=== PATIENT | male | born 1950 | race Caucasian/White ===

== ENCOUNTER 2020-08-13 10:23 | Inpatient (IN) ==
[2020-08-13 11:14] LABS: Basophils % 0.1 % (0.0-0.8); Hematocrit 46.4 VOL% (42.0-52.0); Hemoglobin 15.6 GM/DL (14.0-18.0); Immature Granulocytes % 0.9 %; Immature Granulocytes Absolute 0.14 #; Lymphocytes # 0.6 10*3/uL (1.4-4.0); Lymphocytes % 3.5 % (21.2-54.2); Mean Corpuscular HGB Conc 33.6 GM/DL (32-36); Mean Corpuscular Volume 95.3 FL (87-102); Mean Platelet Volume 9.7 FL (9.6-12.0); Neutrophils % 91.5 % (38.7-73.9); Platelet Count 186 T/CUMM (130-400); Red Blood Count 4.87 MC/CUMM (3.8-5.5); Red Cell Distribution Width 11.9 % (9.3-17.3); White Blood Count 16.1 T/CUMM (4-12)
[2020-08-13 11:32] LABS: Lymphocytes 3 % (20-55); Platelet Estimate Adequate; Segmented Neutrophils 92 % (50-85); Total Cells Counted 100
[2020-08-13] MEDS ORDERED: AZITHROMYCIN INJ 500 MG in SODIUM CHLORIDE 0.9% 250 ML IV STA (11:51)
[2020-08-13] MEDS ORDERED: cefTRIAXone 1,000 MG in SODIUM CHLORIDE 0.9% 100 ML IV STA (11:51)
[2020-08-13 11:54] LABS: Alanine Aminotransferase 24 U/L (16-61); Albumin 2.9 G/DL (3.4-5.0); Alkaline Phosphatase 73 U/L (45-117); Aspartate Amino Transferase 25 U/L (0-37); Blood Urea Nitrogen 22 MG/DL (7-18); Calcium 9.1 MG/DL (8.5-10.1); Carbon Dioxide 22 MMOL/L (21-32); Estimated Glom Filtration Rate 59 ML/MIN; Glucose 209 MG/DL (74-106); Osmolality,Calculated 274.4 MOS/KG (273-304); Potassium 4.1 MMOL/L (3.5-5.1); Sodium 133 MMOL/L (136-145); Total Protein 7.6 G/DL (6.4-8.3)
[2020-08-13] MEDS ORDERED: DEXAMETHASONE 4 MG/1 ML VIAL IV STA (12:30)
[2020-08-13] MEDS ORDERED: ONDANSETRON 4 MG/2 ML VIAL IV PRN (13:15)
[2020-08-13] MEDS ORDERED: DEXTROSE 50% 25 GM/50 ML VIAL IV PRN (13:15)
[2020-08-13] MEDS ORDERED: GLUCAGON 1 MG VIAL IM PRN (13:15)
[2020-08-13] MEDS ORDERED: DOCUSATE SODIUM 100 MG CAPSULE PO PRN (13:15)
[2020-08-13] MEDS: ENOXAPARIN 30 MG/0.3 ML SYRINGE SUBCUT SCH (14:11)
[2020-08-13] MEDS: SODIUM CHLORIDE 0.9% 1,000 ML IV SCH (14:12)
[2020-08-13] MEDS ORDERED: REMDESIVIR 200 MG in SODIUM CHLORIDE 0.9% 210 ML IV ONE (16:00)
[2020-08-13] MEDS: INSULIN LISPRO 100 UNIT/ML SUBCUT SCH ×2 (17:52→21:43)
[2020-08-13] MEDS: carvediloL 3.125 MG TABLET PO SCH (21:42)
[2020-08-13] MEDS: DONEPEZIL 10 MG TABLET PO SCH (21:42)
[2020-08-13] MEDS: ASCORBIC ACID 500 MG TABLET PO SCH (21:43)
[2020-08-13] MEDS: MEMANTINE 10 MG TABLET PO SCH (21:43)
[2020-08-14] MEDS: SODIUM CHLORIDE 0.9% 1,000 ML IV SCH (05:17)
[2020-08-14 05:30] LABS: Basophils % 0.2 % (0.0-0.8); Hematocrit 40.5 VOL% (42.0-52.0); Immature Granulocytes % 1.1 %; Immature Granulocytes Absolute 0.14 #; Lymphocytes # 0.6 10*3/uL (1.4-4.0); Lymphocytes % 5.1 % (21.2-54.2); Mean Corpuscular HGB Conc 34.6 GM/DL (32-36); Mean Corpuscular Volume 93.5 FL (87-102); Mean Platelet Volume 9.7 FL (9.6-12.0); Monocytes % 6.7 % (1.7-12.7); Neutrophils % 86.9 % (38.7-73.9); Platelet Count 169 T/CUMM (130-400); Red Blood Count 4.33 MC/CUMM (3.8-5.5); Red Cell Distribution Width 11.9 % (9.3-17.3); White Blood Count 12.2 T/CUMM (4-12)
[2020-08-14 05:57] LABS: Albumin 2.4 G/DL (3.4-5.0); Bilirubin,Total 0.4 MG/DL (0.2-1.0); Calcium 8.4 MG/DL (8.5-10.1); Osmolality,Calculated 282.4 MOS/KG (273-304); Potassium 4.1 MMOL/L (3.5-5.1); Risk Ratio 1.95; Thyroid Stimulating Hormone 0.111 uIU/ml (0.358-3.74); Total Protein 6.5 G/DL (6.4-8.3); VLDL CHOLESTEROL 9.6 MG/DL
[2020-08-14] MEDS: INSULIN LISPRO 100 UNIT/ML SUBCUT SCH ×4 (07:31→21:23)
[2020-08-14] MEDS: carvediloL 3.125 MG TABLET PO SCH ×2 (08:20→21:20)
[2020-08-14] MEDS: MEMANTINE 10 MG TABLET PO SCH ×2 (08:20→21:20)
[2020-08-14] MEDS: ZINC GLUCONATE 50 MG TABLET PO SCH (08:20)
[2020-08-14] MEDS: CHOLECALCIFEROL 1,000 UNIT TABLET PO SCH (08:20)
[2020-08-14] MEDS: DEXAMETHASONE 10 MG/1 ML VIAL IV SCH (08:20)
[2020-08-14] MEDS: ASCORBIC ACID 500 MG TABLET PO SCH ×2 (08:20→21:20)
[2020-08-14] MEDS: CITALOPRAM 20 MG TABLET PO SCH (08:20)
[2020-08-14] MEDS: PANTOPRAZOLE 40 MG TABLET PO SCH (08:20)
[2020-08-14 08:46] LABS: Free T4 (Free Thyroxine) 0.95 NG/DL (0.76-1.46)
[2020-08-14 08:51] LABS: ABG Base Excess -0.9 MMOL/L (-2.5-2.5); ABG HCO3 22.7 MMOL/L (20-26); ABG Oxygen Saturation 93.6 % (95-100); ABG PCO2 34.7 MM HG (35-48); ABG PH 7.433 (7.35-7.45); ABG PO2 67.3 MM HG (80-95); ABG TCO2 23.7 MMOL/L (23-27)
[2020-08-14] MEDS: REMDESIVIR 100 MG in SODIUM CHLORIDE 0.9% 100 ML IV SCH (09:06)
[2020-08-14] MEDS: ENOXAPARIN 30 MG/0.3 ML SYRINGE SUBCUT SCH (13:50)
[2020-08-14] MEDS: cefTRIAXone 1,000 MG in SYRINGE 1 EACH IV SCH (13:50)
[2020-08-14] MEDS: AZITHROMYCIN INJ 500 MG in SODIUM CHLORIDE 0.9% 250 ML IV SCH (13:50)
[2020-08-14] MEDS ORDERED: OLANZapine 10 MG VIAL IM ONE (17:35)
[2020-08-14] MEDS: DONEPEZIL 10 MG TABLET PO SCH (21:20)
[2020-08-15 05:40] LABS: Basophils % 0.1 % (0.0-0.8); Hematocrit 41.2 VOL% (42.0-52.0); Hemoglobin 13.5 GM/DL (14.0-18.0); Immature Granulocytes % 0.6 %; Immature Granulocytes Absolute 0.06 #; Lymphocytes # 0.7 10*3/uL (1.4-4.0); Lymphocytes % 7.2 % (21.2-54.2); Mean Corpuscular HGB Conc 32.8 GM/DL (32-36); Mean Corpuscular Volume 97.4 FL (87-102); Mean Platelet Volume 9.7 FL (9.6-12.0); Monocytes % 8.3 % (1.7-12.7); Neutrophils % 83.8 % (38.7-73.9); Platelet Count 187 T/CUMM (130-400); Red Blood Count 4.23 MC/CUMM (3.8-5.5); Red Cell Distribution Width 12.3 % (9.3-17.3); White Blood Count 9.3 T/CUMM (4-12)
[2020-08-15 05:59] LABS: Calcium 8.8 MG/DL (8.5-10.1); Potassium 4.2 MMOL/L (3.5-5.1)
[2020-08-15] MEDS: CHOLECALCIFEROL 1,000 UNIT TABLET PO SCH (08:23)
[2020-08-15] MEDS: ASCORBIC ACID 500 MG TABLET PO SCH ×2 (08:23→21:06)
[2020-08-15] MEDS: DEXAMETHASONE 10 MG/1 ML VIAL IV SCH (08:24)
[2020-08-15] MEDS: carvediloL 3.125 MG TABLET PO SCH ×2 (08:24→22:21)
[2020-08-15] MEDS: CITALOPRAM 20 MG TABLET PO SCH (08:24)
[2020-08-15] MEDS: PANTOPRAZOLE 40 MG TABLET PO SCH (08:24)
[2020-08-15] MEDS: ZINC GLUCONATE 50 MG TABLET PO SCH (08:24)
[2020-08-15] MEDS: MEMANTINE 10 MG TABLET PO SCH ×2 (08:24→21:06)
[2020-08-15] MEDS: INSULIN LISPRO 100 UNIT/ML SUBCUT SCH ×4 (09:52→22:20)
[2020-08-15] MEDS: REMDESIVIR 100 MG in SODIUM CHLORIDE 0.9% 100 ML IV SCH (11:04)
[2020-08-15] MEDS: ENOXAPARIN 30 MG/0.3 ML SYRINGE SUBCUT SCH (13:34)
[2020-08-15] MEDS: cefTRIAXone 1,000 MG in SYRINGE 1 EACH IV SCH (13:34)
[2020-08-15] MEDS: AZITHROMYCIN INJ 500 MG in SODIUM CHLORIDE 0.9% 250 ML IV SCH (13:35)
[2020-08-15] MEDS: DONEPEZIL 10 MG TABLET PO SCH (21:06)
[2020-08-16 06:16] LABS: Basophils % 0.3 % (0.0-0.8); Hematocrit 41.5 VOL% (42.0-52.0); Hemoglobin 13.9 GM/DL (14.0-18.0); Immature Granulocytes % 1.4 %; Immature Granulocytes Absolute 0.16 #; Lymphocytes # 0.8 10*3/uL (1.4-4.0); Lymphocytes % 6.7 % (21.2-54.2); Mean Corpuscular HGB Conc 33.5 GM/DL (32-36); Mean Corpuscular Volume 95.6 FL (87-102); Mean Platelet Volume 9.9 FL (9.6-12.0); Monocytes % 6.6 % (1.7-12.7); Platelet Count 192 T/CUMM (130-400); Red Blood Count 4.34 MC/CUMM (3.8-5.5); Red Cell Distribution Width 12.3 % (9.3-17.3); White Blood Count 11.6 T/CUMM (4-12)
[2020-08-16 06:40] LABS: Calcium 8.7 MG/DL (8.5-10.1); Potassium 3.9 MMOL/L (3.5-5.1)
[2020-08-16] MEDS: INSULIN LISPRO 100 UNIT/ML SUBCUT SCH ×4 (08:14→21:10)
[2020-08-16] MEDS: PANTOPRAZOLE 40 MG TABLET PO SCH (10:02)
[2020-08-16] MEDS: CHOLECALCIFEROL 1,000 UNIT TABLET PO SCH (10:03)
[2020-08-16] MEDS: ZINC GLUCONATE 50 MG TABLET PO SCH (10:03)
[2020-08-16] MEDS: MEMANTINE 10 MG TABLET PO SCH ×2 (10:03→21:10)
[2020-08-16] MEDS: ASCORBIC ACID 500 MG TABLET PO SCH ×2 (10:03→21:10)
[2020-08-16] MEDS: CITALOPRAM 20 MG TABLET PO SCH (10:05)
[2020-08-16] MEDS: DEXAMETHASONE 10 MG/1 ML VIAL IV SCH (10:05)
[2020-08-16] MEDS: carvediloL 3.125 MG TABLET PO SCH ×2 (10:06→21:10)
[2020-08-16] MEDS: REMDESIVIR 100 MG in SODIUM CHLORIDE 0.9% 100 ML IV SCH (10:44)
[2020-08-16] MEDS: AZITHROMYCIN INJ 500 MG in SODIUM CHLORIDE 0.9% 250 ML IV SCH (13:32)
[2020-08-16] MEDS: ENOXAPARIN 30 MG/0.3 ML SYRINGE SUBCUT SCH (13:32)
[2020-08-16] MEDS: cefTRIAXone 1,000 MG in SYRINGE 1 EACH IV SCH (13:32)
[2020-08-16] MEDS: DONEPEZIL 10 MG TABLET PO SCH (21:10)
[2020-08-17 05:25] LABS: Basophils % 0.2 % (0.0-0.8); Hematocrit 43.8 VOL% (42.0-52.0); Hemoglobin 14.5 GM/DL (14.0-18.0); Immature Granulocytes % 1.2 %; Immature Granulocytes Absolute 0.11 #; Lymphocytes # 0.7 10*3/uL (1.4-4.0); Lymphocytes % 8.2 % (21.2-54.2); Mean Corpuscular HGB Conc 33.1 GM/DL (32-36); Mean Corpuscular Volume 96.1 FL (87-102); Mean Platelet Volume 9.5 FL (9.6-12.0); Monocytes % 5.9 % (1.7-12.7); Neutrophils % 84.5 % (38.7-73.9); Platelet Count 202 T/CUMM (130-400); Red Blood Count 4.56 MC/CUMM (3.8-5.5); Red Cell Distribution Width 12.3 % (9.3-17.3); White Blood Count 8.9 T/CUMM (4-12)
[2020-08-17 05:44] LABS: Calcium 9.1 MG/DL (8.5-10.1); Ferritin 624.6 ng/ml (26-388); Osmolality,Calculated 290.8 MOS/KG (273-304)
[2020-08-17] MEDS: INSULIN LISPRO 100 UNIT/ML SUBCUT SCH ×4 (08:03→21:40)
[2020-08-17] MEDS: PANTOPRAZOLE 40 MG TABLET PO SCH (09:59)
[2020-08-17] MEDS: carvediloL 3.125 MG TABLET PO SCH ×2 (09:59→21:40)
[2020-08-17] MEDS: REMDESIVIR 100 MG in SODIUM CHLORIDE 0.9% 100 ML IV SCH (09:59)
[2020-08-17] MEDS: MEMANTINE 10 MG TABLET PO SCH ×2 (09:59→21:40)
[2020-08-17] MEDS: CITALOPRAM 20 MG TABLET PO SCH (09:59)
[2020-08-17] MEDS: DEXAMETHASONE 10 MG/1 ML VIAL IV SCH (09:59)
[2020-08-17] MEDS: CHOLECALCIFEROL 1,000 UNIT TABLET PO SCH (10:00)
[2020-08-17] MEDS: ZINC GLUCONATE 50 MG TABLET PO SCH (10:00)
[2020-08-17] MEDS: ASCORBIC ACID 500 MG TABLET PO SCH ×2 (10:00→21:40)
[2020-08-17] MEDS: ENOXAPARIN 30 MG/0.3 ML SYRINGE SUBCUT SCH (15:12)
[2020-08-17] MEDS: cefTRIAXone 1,000 MG in SYRINGE 1 EACH IV SCH (15:12)
[2020-08-17] MEDS: AZITHROMYCIN INJ 500 MG in SODIUM CHLORIDE 0.9% 250 ML IV SCH (15:12)
[2020-08-17] MEDS: DONEPEZIL 10 MG TABLET PO SCH (21:40)
[2020-08-17] MEDS ORDERED: LORazepam 2 MG/1 ML VIAL IV ONE (23:39)
[2020-08-18] MEDS ORDERED: LORazepam 2 MG/1 ML VIAL IV PRN (01:25)
[2020-08-18 06:12] LABS: Basophils % 0.2 % (0.0-0.8); Eosinophils % 0.1 % (0.00-10.9); Hematocrit 46.7 VOL% (42.0-52.0); Hemoglobin 15.5 GM/DL (14.0-18.0); Immature Granulocytes % 1.2 %; Immature Granulocytes Absolute 0.14 #; Lymphocytes # 0.8 10*3/uL (1.4-4.0); Lymphocytes % 6.4 % (21.2-54.2); Mean Corpuscular HGB Conc 33.2 GM/DL (32-36); Mean Corpuscular Volume 95.3 FL (87-102); Mean Platelet Volume 9.6 FL (9.6-12.0); Monocytes % 2.6 % (1.7-12.7); Neutrophils % 89.5 % (38.7-73.9); Platelet Count 204 T/CUMM (130-400); Red Cell Distribution Width 12.2 % (9.3-17.3); White Blood Count 11.7 T/CUMM (4-12)
[2020-08-18 06:31] LABS: Calcium 9.2 MG/DL (8.5-10.1); Ferritin 778.5 ng/ml (26-388); Osmolality,Calculated 279.5 MOS/KG (273-304); Potassium 4.1 MMOL/L (3.5-5.1)
[2020-08-18] MEDS: INSULIN LISPRO 100 UNIT/ML SUBCUT SCH ×4 (08:31→21:09)
[2020-08-18] MEDS: DEXAMETHASONE 10 MG/1 ML VIAL IV SCH (10:02)
[2020-08-18] MEDS: CITALOPRAM 20 MG TABLET PO SCH (10:02)
[2020-08-18] MEDS: carvediloL 3.125 MG TABLET PO SCH ×2 (10:02→21:48)
[2020-08-18] MEDS: PANTOPRAZOLE 40 MG TABLET PO SCH (10:04)
[2020-08-18] MEDS: CHOLECALCIFEROL 1,000 UNIT TABLET PO SCH (10:04)
[2020-08-18] MEDS: ASCORBIC ACID 500 MG TABLET PO SCH ×2 (10:04→21:49)
[2020-08-18] MEDS: MEMANTINE 10 MG TABLET PO SCH ×2 (10:04→21:48)
[2020-08-18] MEDS: ZINC GLUCONATE 50 MG TABLET PO SCH (10:04)
[2020-08-18] MEDS: cefTRIAXone 1,000 MG in SYRINGE 1 EACH IV SCH (15:32)
[2020-08-18] MEDS: ENOXAPARIN 30 MG/0.3 ML SYRINGE SUBCUT SCH (15:32)
[2020-08-18] MEDS: AZITHROMYCIN INJ 500 MG in SODIUM CHLORIDE 0.9% 250 ML IV SCH (15:47)
[2020-08-18] MEDS: DONEPEZIL 10 MG TABLET PO SCH (21:48)
[2020-08-19 05:39] LABS: Basophils % 0.2 % (0.0-0.8); Hematocrit 44.7 VOL% (42.0-52.0); Hemoglobin 15.2 GM/DL (14.0-18.0); Lymphocytes # 0.5 10*3/uL (1.4-4.0); Lymphocytes % 5.2 % (21.2-54.2); Mean Corpuscular Volume 92.2 FL (87-102); Mean Platelet Volume 9.7 FL (9.6-12.0); Neutrophils % 91.6 % (38.7-73.9); Platelet Count 167 T/CUMM (130-400); Red Blood Count 4.85 MC/CUMM (3.8-5.5); Red Cell Distribution Width 12.4 % (9.3-17.3); White Blood Count 9.6 T/CUMM (4-12)
[2020-08-19 06:05] LABS: Lymphocytes 5 % (20-55); Platelet Estimate Adequate; Segmented Neutrophils 91 % (50-85); Total Cells Counted 100
[2020-08-19 06:09] LABS: Ferritin 896.6 ng/ml (26-388); Osmolality,Calculated 293.8 MOS/KG (273-304); Potassium 4.3 MMOL/L (3.5-5.1)
[2020-08-19] MEDS: CITALOPRAM 20 MG TABLET PO SCH (08:40)
[2020-08-19] MEDS: PANTOPRAZOLE 40 MG TABLET PO SCH (08:41)
[2020-08-19] MEDS: CHOLECALCIFEROL 1,000 UNIT TABLET PO SCH (08:41)
[2020-08-19] MEDS: carvediloL 3.125 MG TABLET PO SCH ×2 (08:41→20:41)
[2020-08-19] MEDS: ZINC GLUCONATE 50 MG TABLET PO SCH (08:41)
[2020-08-19] MEDS: MEMANTINE 10 MG TABLET PO SCH ×2 (08:41→20:42)
[2020-08-19] MEDS: DEXAMETHASONE 10 MG/1 ML VIAL IV SCH (08:41)
[2020-08-19] MEDS: ASCORBIC ACID 500 MG TABLET PO SCH ×2 (08:41→20:42)
[2020-08-19] MEDS: INSULIN LISPRO 100 UNIT/ML SUBCUT SCH ×4 (08:43→20:42)
[2020-08-19 09:14] LABS: ABG Base Excess 0.3 MMOL/L (-2.5-2.5); ABG HCO3 22.7 MMOL/L (20-26); ABG Oxygen Saturation 84.9 % (95-100); ABG PH 7.482 (7.35-7.45); ABG PO2 48.7 MM HG (80-95); ABG TCO2 23.6 MMOL/L (23-27)
[2020-08-19] MEDS: ENOXAPARIN 80 MG/0.8 ML SYRINGE SUBCUT SCH ×2 (09:52→20:43)
[2020-08-19] MEDS ORDERED: FUROSEMIDE 40 MG/4 ML VIAL IV ONE (10:25)
[2020-08-19] MEDS: cefTRIAXone 1,000 MG in SYRINGE 1 EACH IV SCH (13:02)
[2020-08-19 13:55] LABS: ABG Base Excess 2.4 MMOL/L (-2.5-2.5); ABG HCO3 26.2 MMOL/L (20-26); ABG Oxygen Saturation 88.1 % (95-100); ABG PCO2 32.9 MM HG (35-48); ABG PH 7.487 (7.35-7.45); ABG PO2 54.3 MM HG (80-95); ABG TCO2 20.5 MMOL/L (23-27)
[2020-08-19] MEDS: AZITHROMYCIN INJ 500 MG in SODIUM CHLORIDE 0.9% 250 ML IV SCH (14:00)
[2020-08-19] MEDS: hydrALAZINE 20 MG/1 ML VIAL IV PRN (18:40)
[2020-08-19] MEDS: DONEPEZIL 10 MG TABLET PO SCH (20:41)
[2020-08-20 04:13] LABS: Basophils % 0.2 % (0.0-0.8); Hematocrit 46.5 VOL% (42.0-52.0); Hemoglobin 16.1 GM/DL (14.0-18.0); Immature Granulocytes % 0.5 %; Immature Granulocytes Absolute 0.06 #; Lymphocytes # 0.5 10*3/uL (1.4-4.0); Lymphocytes % 4.8 % (21.2-54.2); Mean Corpuscular HGB Conc 34.6 GM/DL (32-36); Mean Corpuscular Volume 92.8 FL (87-102); Mean Platelet Volume 10.2 FL (9.6-12.0); Neutrophils % 92.5 % (38.7-73.9); Platelet Count 166 T/CUMM (130-400); Red Blood Count 5.01 MC/CUMM (3.8-5.5); Red Cell Distribution Width 12.6 % (9.3-17.3); White Blood Count 11.1 T/CUMM (4-12)
[2020-08-20 04:44] LABS: Lymphocytes 5 % (20-55); Platelet Estimate Adequate; Segmented Neutrophils 92 % (50-85); Total Cells Counted 100
[2020-08-20 04:47] LABS: Calcium 9.2 MG/DL (8.5-10.1); Osmolality,Calculated 294.3 MOS/KG (273-304); Potassium 4.8 MMOL/L (3.5-5.1)
[2020-08-20 05:48] LABS: Allen Test Positive
[2020-08-20 05:49] LABS: ABG Base Excess 0.4 MMOL/L (-2.5-2.5); ABG HCO3 21.8 MMOL/L (20-26); ABG Oxygen Saturation 89.8 % (95-100); ABG TCO2 22.7 MMOL/L (23-27)
[2020-08-20] MEDS: ASCORBIC ACID 500 MG TABLET PO SCH ×2 (08:00→20:38)
[2020-08-20] MEDS: ZINC GLUCONATE 50 MG TABLET PO SCH (08:00)
[2020-08-20] MEDS: ENOXAPARIN 80 MG/0.8 ML SYRINGE SUBCUT SCH ×2 (08:00→20:39)
[2020-08-20] MEDS: CITALOPRAM 20 MG TABLET PO SCH (08:01)
[2020-08-20] MEDS: PANTOPRAZOLE 40 MG TABLET PO SCH (08:01)
[2020-08-20] MEDS: carvediloL 3.125 MG TABLET PO SCH ×2 (08:01→20:38)
[2020-08-20] MEDS: CHOLECALCIFEROL 1,000 UNIT TABLET PO SCH (08:01)
[2020-08-20] MEDS: MEMANTINE 10 MG TABLET PO SCH ×2 (08:01→20:38)
[2020-08-20] MEDS: DEXAMETHASONE 10 MG/1 ML VIAL IV SCH (08:01)
[2020-08-20] MEDS: INSULIN LISPRO 100 UNIT/ML SUBCUT SCH ×4 (08:49→20:39)
[2020-08-20] MEDS: methylPREDNISolone SOD SUC 40 MG/1 ML VIAL IV SCH ×2 (11:37→18:20)
[2020-08-20] MEDS ORDERED: FUROSEMIDE 40 MG/4 ML VIAL IV ONE (11:54)
[2020-08-20] MEDS: cefTRIAXone 1,000 MG in SYRINGE 1 EACH IV SCH (13:11)
[2020-08-20] MEDS: AZITHROMYCIN INJ 500 MG in SODIUM CHLORIDE 0.9% 250 ML IV SCH (13:27)
[2020-08-20] MEDS: hydrALAZINE 20 MG/1 ML VIAL IV PRN (18:34)
[2020-08-20] MEDS: DONEPEZIL 10 MG TABLET PO SCH (20:38)
[2020-08-21] MEDS: methylPREDNISolone SOD SUC 40 MG/1 ML VIAL IV SCH ×3 (02:50→18:03)
[2020-08-21 04:10] LABS: ABG Base Excess -0.3 MMOL/L (-2.5-2.5); ABG HCO3 24.1 MMOL/L (20-26); ABG Oxygen Saturation 95.9 % (95-100); ABG PCO2 40.3 MM HG (35-48); ABG PH 7.393 (7.35-7.45); ABG PO2 88.3 MM HG (80-95); ABG TCO2 20.3 MMOL/L (23-27); Allen Test Positive; Pt O2 Delivery Device BIPAP
[2020-08-21 04:49] LABS: Basophils % 0.1 % (0.0-0.8); Hematocrit 51.3 VOL% (42.0-52.0); Immature Granulocytes % 0.8 %; Immature Granulocytes Absolute 0.11 #; Lymphocytes # 0.6 10*3/uL (1.4-4.0); Lymphocytes % 4.4 % (21.2-54.2); Mean Corpuscular HGB Conc 33.1 GM/DL (32-36); Mean Corpuscular Volume 95.4 FL (87-102); Mean Platelet Volume 10.7 FL (9.6-12.0); Monocytes % 2.8 % (1.7-12.7); Neutrophils % 91.9 % (38.7-73.9); Platelet Count 152 T/CUMM (130-400); Red Blood Count 5.38 MC/CUMM (3.8-5.5); Red Cell Distribution Width 12.8 % (9.3-17.3); White Blood Count 13.1 T/CUMM (4-12)
[2020-08-21 05:12] LABS: Calcium 9.6 MG/DL (8.5-10.1); Osmolality,Calculated 311.7 MOS/KG (273-304); Potassium 4.2 MMOL/L (3.5-5.1)
[2020-08-21 05:18] LABS: Albumin 2.1 G/DL (3.4-5.0); Bilirubin,Total 1.1 MG/DL (0.2-1.0); Calcium 9.9 MG/DL (8.5-10.1); Ferritin 1410.9 ng/ml (26-388); Potassium 4.2 MMOL/L (3.5-5.1); Total Protein 7.8 G/DL (6.4-8.3)
[2020-08-21] MEDS: hydrALAZINE 20 MG/1 ML VIAL IV PRN (05:37)
[2020-08-21] MEDS: INSULIN LISPRO 100 UNIT/ML SUBCUT SCH ×3 (08:34→18:02)
[2020-08-21] MEDS ORDERED: ETOMIDATE 20 MG/10 ML VIAL IV ONE ×2 (09:05→09:13)
[2020-08-21] MEDS ORDERED: SUCCINYLCHOLINE 200 MG/10 ML VIAL ONE (09:06)
[2020-08-21] MEDS ORDERED: SUCCINYLCHOLINE 200 MG/10 ML VIAL IV ONE (09:14)
[2020-08-21] MEDS ORDERED: LORazepam 2 MG/1 ML VIAL IV ONE (09:56)
[2020-08-21] MEDS: MIDAZOLAM 100 MG in SODIUM CHLORIDE 0.9% 80 ML IV PRN ×2 (10:05→21:45)
[2020-08-21] MEDS: fentaNYL INJ 1,250 MCG in SODIUM CHLORIDE 0.9% 225 ML IV PRN ×2 (10:05→17:42)
[2020-08-21] MEDS: CISATRACURIUM 200 MG in SODIUM CHLORIDE 0.9% 180 ML IV PRN (10:25)
[2020-08-21 10:40] LABS: ABG Base Excess -3.6 MMOL/L (-2.5-2.5); ABG HCO3 21.2 MMOL/L (20-26); ABG PCO2 51.2 MM HG (35-48); ABG PH 7.284 (7.35-7.45); ABG PO2 62.1 MM HG (80-95); ABG TCO2 20.5 MMOL/L (23-27)
[2020-08-21] MEDS: CHOLECALCIFEROL 1,000 UNIT TABLET PO SCH (10:56)
[2020-08-21] MEDS: ZINC GLUCONATE 50 MG TABLET PO SCH (10:56)
[2020-08-21] MEDS: carvediloL 3.125 MG TABLET PO SCH (10:56)
[2020-08-21] MEDS: ASCORBIC ACID 500 MG TABLET PO SCH ×2 (10:56→20:55)
[2020-08-21] MEDS: MEMANTINE 10 MG TABLET PO SCH ×2 (10:57→20:55)
[2020-08-21] MEDS: CITALOPRAM 20 MG TABLET PO SCH (10:57)
[2020-08-21] MEDS: ENOXAPARIN 80 MG/0.8 ML SYRINGE SUBCUT SCH ×2 (10:57→20:55)
[2020-08-21] MEDS: PANTOPRAZOLE 40 MG TABLET PO SCH (10:58)
[2020-08-21] MEDS ORDERED: SODIUM CHLORIDE 0.9% 1,000 ML IV ONE (12:04)
[2020-08-21] MEDS: AZITHROMYCIN INJ 500 MG in SODIUM CHLORIDE 0.9% 250 ML IV SCH (13:07)
[2020-08-21] MEDS: cefTRIAXone 1,000 MG in SYRINGE 1 EACH IV SCH (13:07)
[2020-08-21] MEDS ORDERED: METOPROLOL TARTRATE 5 MG/5 ML VIAL IV ONE (15:16)
[2020-08-21] MEDS ORDERED: SODIUM CHLORIDE 0.9% 1,000 ML IV SCH (15:30)
[2020-08-21] MEDS: carvediloL 12.5 MG TABLET PO SCH (16:28)
[2020-08-21] MEDS: DONEPEZIL 10 MG TABLET PO SCH (20:55)
[2020-08-22] MEDS: INSULIN LISPRO 100 UNIT/ML SUBCUT SCH ×4 (01:48→19:25)
[2020-08-22] MEDS: fentaNYL INJ 1,250 MCG in SODIUM CHLORIDE 0.9% 225 ML IV PRN ×2 (02:00→11:55)
[2020-08-22] MEDS: methylPREDNISolone SOD SUC 40 MG/1 ML VIAL IV SCH ×3 (03:00→18:59)
[2020-08-22] MEDS: ACETAMINOPHEN 325 MG TABLET PO PRN ×2 (04:36→10:27)
[2020-08-22 04:37] LABS: Red Cell Distribution Width 13.2 % (9.3-17.3)
[2020-08-22 04:41] LABS: Allen Test Positive; Pt O2 Delivery Device Ventilator
[2020-08-22 05:05] LABS: Basophils % 0.2 % (0.0-0.8); Hematocrit 53.5 VOL% (42.0-52.0); Immature Granulocytes % 2.1 %; Immature Granulocytes Absolute 0.44 #; Lymphocytes # 0.6 10*3/uL (1.4-4.0); Lymphocytes % 2.7 % (21.2-54.2); Mean Corpuscular HGB Conc 29.9 GM/DL (32-36); Mean Corpuscular Volume 105.3 FL (87-102); Mean Platelet Volume 11.4 FL (9.6-12.0); Monocytes % 2.3 % (1.7-12.7); NRBC # 0.03 10*3/uL; Neutrophils % 92.7 % (38.7-73.9); Platelet Count 150 T/CUMM (130-400); Red Blood Count 5.08 MC/CUMM (3.8-5.5); White Blood Count 21.1 T/CUMM (4-12)
[2020-08-22 05:39] LABS: ABG Base Excess -11.6 MMOL/L (-2.5-2.5); ABG HCO3 15.7 MMOL/L (20-26); ABG Oxygen Saturation 98.4 % (95-100); ABG TCO2 24.4 MMOL/L (23-27)
[2020-08-22 05:44] LABS: ABG PH 6.993 (7.35-7.45)
[2020-08-22] MEDS ORDERED: SODIUM BICARBONATE 50 MEQ/50 ML VIAL IV ONE ×2 (05:51→11:19)
[2020-08-22] MEDS ORDERED: SODIUM CHLORIDE 0.9% 1,000 ML IV SCH (06:00)
[2020-08-22 07:48] LABS: ABG Base Excess -5.1 MMOL/L (-2.5-2.5); ABG HCO3 20.2 MMOL/L (20-26); ABG Oxygen Saturation 97.7 % (95-100); ABG PCO2 67.2 MM HG (35-48); ABG TCO2 22.5 MMOL/L (23-27)
[2020-08-22 08:18] LABS: Lymphocytes 1 % (20-55); Metamyelocytes 1 %; Myelocytes 1 %; Segmented Neutrophils 95 % (50-85); Total Cells Counted 100
[2020-08-22 08:20] LABS: Platelet Estimate Adequate; Polychromasia Slight
[2020-08-22] MEDS: ASCORBIC ACID 500 MG TABLET PO SCH ×2 (09:27→20:51)
[2020-08-22] MEDS: ENOXAPARIN 80 MG/0.8 ML SYRINGE SUBCUT SCH (09:27)
[2020-08-22] MEDS: CHOLECALCIFEROL 1,000 UNIT TABLET PO SCH (09:27)
[2020-08-22] MEDS: ZINC GLUCONATE 50 MG TABLET PO SCH (09:27)
[2020-08-22] MEDS: PANTOPRAZOLE 40 MG VIAL IV SCH (09:27)
[2020-08-22] MEDS: carvediloL 12.5 MG TABLET PO SCH ×2 (09:29→18:59)
[2020-08-22] MEDS: MEMANTINE 10 MG TABLET PO SCH ×2 (09:29→20:51)
[2020-08-22] MEDS ORDERED: CEFEPIME 1,000 MG in SODIUM CHLORIDE 0.9% 100 ML IV SCH (10:30)
[2020-08-22] MEDS: MIDAZOLAM 100 MG in SODIUM CHLORIDE 0.9% 80 ML IV PRN (10:48)
[2020-08-22] MEDS ORDERED: VANCOMYCIN INJ 1,250 MG in SODIUM CHLORIDE 0.9% 250 ML IV SCH (11:30)
[2020-08-22] MEDS: SODIUM BICARB INJ 150 MEQ in STERILE WATER INJ 850 ML IV SCH (11:54)
[2020-08-22 13:17] LABS: Potassium 4.9 MMOL/L (3.5-5.1)
[2020-08-22 13:37] LABS: ABG Base Excess 1.5 MMOL/L (-2.5-2.5); ABG HCO3 25.7 MMOL/L (20-26); ABG Oxygen Saturation 96.4 % (95-100); ABG PH 7.443 (7.35-7.45); ABG PO2 75.6 MM HG (80-95); ABG TCO2 21.9 MMOL/L (23-27); Allen Test Positive; Pt O2 Delivery Device Ventilator
[2020-08-22 15:28] LABS: Calcium 7.3 MG/DL (8.5-10.1); Osmolality,Calculated 350.6 MOS/KG (273-304); Potassium 4.3 MMOL/L (3.5-5.1)
[2020-08-22] MEDS: CISATRACURIUM 200 MG in SODIUM CHLORIDE 0.9% 180 ML IV PRN (15:50)
[2020-08-22] MEDS ORDERED: SODIUM CHLORIDE 0.45% 1,000 ML IV ONE (16:43)
[2020-08-22] MEDS ORDERED: SODIUM CHLORIDE 23.4% CONC INJ 38.5 MEQ in STERILE WATER INJ 1,000 ML IV SCH (17:00)
[2020-08-22] MEDS: HEPARIN DRIP 25,000 UNITS/500 ML PREMIX IV SCH (18:59)
[2020-08-22] MEDS: LINEZOLID INJ 600 MG in PREMIX 1 EACH IV SCH (19:00)
[2020-08-22] MEDS: DONEPEZIL 10 MG TABLET PO SCH (20:51)
[2020-08-22 23:10] LABS: Alanine Aminotransferase 52 U/L (16-61); Albumin 1.5 G/DL (3.4-5.0); Alkaline Phosphatase 53 U/L (45-117); Aspartate Amino Transferase 181 U/L (0-37); Bilirubin,Total < 0.39 MG/DL (0.2-1.0); Blood Urea Nitrogen 131 MG/DL (7-18); Calcium 7.2 MG/DL (8.5-10.1); Carbon Dioxide 29 MMOL/L (21-32); Estimated Glom Filtration Rate 15 ML/MIN; Glucose 291 MG/DL (74-106); Osmolality,Calculated 351.9 MOS/KG (273-304); Potassium 3.6 MMOL/L (3.5-5.1); Sodium 151 MMOL/L (136-145); Total Protein 5.1 G/DL (6.4-8.3)
[2020-08-22] MEDS: CEFEPIME 1,000 MG in SODIUM CHLORIDE 0.9% 100 ML IV SCH (23:23)
[2020-08-23] MEDS: INSULIN LISPRO 100 UNIT/ML SUBCUT SCH ×4 (00:01→18:02)
[2020-08-23] MEDS ORDERED: LACTATED RINGERS 500 ML IV ONE (00:52)
[2020-08-23] MEDS: methylPREDNISolone SOD SUC 40 MG/1 ML VIAL IV SCH ×3 (03:49→18:02)
[2020-08-23] MEDS: MIDAZOLAM 100 MG in SODIUM CHLORIDE 0.9% 80 ML IV PRN ×2 (03:51→20:10)
[2020-08-23 04:42] LABS: Basophils % 0.1 % (0.0-0.8); Hematocrit 37.8 VOL% (42.0-52.0); Immature Granulocytes % 0.8 %; Immature Granulocytes Absolute 0.07 #; Lymphocytes # 0.3 10*3/uL (1.4-4.0); Lymphocytes % 3.1 % (21.2-54.2); NRBC # 0.02 10*3/uL; Red Cell Distribution Width 13.2 % (9.3-17.3)
[2020-08-23 04:52] LABS: ABG Base Excess 0.6 MMOL/L (-2.5-2.5); ABG HCO3 24.8 MMOL/L (20-26); ABG Oxygen Saturation 90.4 % (95-100); ABG PCO2 48.9 MM HG (35-48); ABG PH 7.349 (7.35-7.45); ABG PO2 63.5 MM HG (80-95); Allen Test Positive; Pt O2 Delivery Device Ventilator
[2020-08-23 04:55] LABS: White Blood Count 8.9 T/CUMM (4-12)
[2020-08-23 04:56] LABS: Hemoglobin 12.1 GM/DL (14.0-18.0); Platelet Count 72 T/CUMM (130-400); Red Blood Count 3.82 MC/CUMM (3.8-5.5)
[2020-08-23 05:07] LABS: Hypochromasia 1+; Lymphocytes 6 % (20-55); Microcytosis 1+; Platelet Estimate Decreased; Segmented Neutrophils 91 % (50-85); Total Cells Counted 100
[2020-08-23 05:19] LABS: Calcium 7.4 MG/DL (8.5-10.1); Osmolality,Calculated 350.9 MOS/KG (273-304); Potassium 3.3 MMOL/L (3.5-5.1)
[2020-08-23] MEDS: LINEZOLID INJ 600 MG in PREMIX 1 EACH IV SCH (05:35)
[2020-08-23] MEDS: CHOLECALCIFEROL 1,000 UNIT TABLET PO SCH (08:06)
[2020-08-23] MEDS: ASCORBIC ACID 500 MG TABLET PO SCH ×2 (08:06→20:30)
[2020-08-23] MEDS: ZINC GLUCONATE 50 MG TABLET PO SCH (08:06)
[2020-08-23] MEDS: MEMANTINE 10 MG TABLET PO SCH ×2 (08:06→20:30)
[2020-08-23] MEDS: PANTOPRAZOLE 40 MG VIAL IV SCH (08:07)
[2020-08-23] MEDS ORDERED: INSULIN GLARGINE 100 UNIT/ML SUBCUT SCH ×2 (09:00)
[2020-08-23] MEDS: carvediloL 12.5 MG TABLET PO SCH ×2 (09:02→16:56)
[2020-08-23] MEDS: SODIUM BICARB INJ 150 MEQ in STERILE WATER INJ 850 ML IV SCH (09:03)
[2020-08-23] MEDS: SODIUM CHLORIDE 0.45% 1,000 ML IV SCH (10:30)
[2020-08-23] MEDS: CEFEPIME 1,000 MG in SODIUM CHLORIDE 0.9% 100 ML IV SCH (12:25)
[2020-08-23] MEDS: fentaNYL INJ 1,250 MCG in SODIUM CHLORIDE 0.9% 225 ML IV PRN (13:00)
[2020-08-23] MEDS: HEPARIN DRIP 25,000 UNITS/500 ML PREMIX IV SCH ×2 (16:56→18:55)
[2020-08-23] MEDS: DONEPEZIL 10 MG TABLET PO SCH (20:31)
[2020-08-24] MEDS: INSULIN LISPRO 100 UNIT/ML SUBCUT SCH ×4 (00:21→18:04)
[2020-08-24] MEDS: CEFEPIME 1,000 MG in SODIUM CHLORIDE 0.9% 100 ML IV SCH ×3 (00:22→23:50)
[2020-08-24] MEDS: methylPREDNISolone SOD SUC 40 MG/1 ML VIAL IV SCH ×3 (03:01→18:05)
[2020-08-24 03:25] LABS: ABG HCO3 26.7 MMOL/L (20-26); ABG Oxygen Saturation 98.4 % (95-100); ABG PCO2 47.3 MM HG (35-48); ABG PO2 145.1 MM HG (80-95); ABG TCO2 28.2 MMOL/L (23-27); Allen Test Positive; Pt O2 Delivery Device Ventilator
[2020-08-24 03:37] LABS: Basophils % 0.1 % (0.0-0.8); Hematocrit 37.1 VOL% (42.0-52.0); Hemoglobin 11.8 GM/DL (14.0-18.0); Immature Granulocytes % 0.6 %; Immature Granulocytes Absolute 0.09 #; Lymphocytes # 0.2 10*3/uL (1.4-4.0); Lymphocytes % 1.6 % (21.2-54.2); Mean Corpuscular HGB Conc 31.8 GM/DL (32-36); Mean Corpuscular Volume 99.7 FL (87-102); Mean Platelet Volume 12.2 FL (9.6-12.0); Monocytes % 3.9 % (1.7-12.7); Neutrophils % 93.8 % (38.7-73.9); Platelet Count 101 T/CUMM (130-400); Red Blood Count 3.72 MC/CUMM (3.8-5.5); Red Cell Distribution Width 13.3 % (9.3-17.3); White Blood Count 14.7 T/CUMM (4-12)
[2020-08-24 03:51] LABS: Albumin 1.7 G/DL (3.4-5.0); Bilirubin,Total 0.9 MG/DL (0.2-1.0); Calcium 7.6 MG/DL (8.5-10.1); Osmolality,Calculated 358.3 MOS/KG (273-304); Potassium 4.1 MMOL/L (3.5-5.1); Total Protein 5.6 G/DL (6.4-8.3)
[2020-08-24 04:25] LABS: Lymphocytes 1 % (20-55); Microcytosis 1+; Platelet Estimate Decreased; Segmented Neutrophils 93 % (50-85); Total Cells Counted 100
[2020-08-24 04:26] LABS: Hypochromasia Slight
[2020-08-24] MEDS: fentaNYL INJ 1,250 MCG in SODIUM CHLORIDE 0.9% 225 ML IV PRN ×2 (07:08→21:04)
[2020-08-24] MEDS: NOREPINEPHRINE 8 MG in SODIUM CHLORIDE 0.9% 242 ML IV PRN ×2 (07:45→11:45)
[2020-08-24] MEDS: INSULIN GLARGINE 100 UNIT/ML SUBCUT SCH (08:13)
[2020-08-24] MEDS: ASCORBIC ACID 500 MG TABLET PO SCH ×2 (08:14→20:13)
[2020-08-24] MEDS: CHOLECALCIFEROL 1,000 UNIT TABLET PO SCH (08:14)
[2020-08-24] MEDS: PANTOPRAZOLE 40 MG VIAL IV SCH (08:14)
[2020-08-24] MEDS: ZINC GLUCONATE 50 MG TABLET PO SCH (08:14)
[2020-08-24] MEDS: carvediloL 12.5 MG TABLET PO SCH (08:14)
[2020-08-24] MEDS: MEMANTINE 10 MG TABLET PO SCH ×2 (08:15→20:13)
[2020-08-24] MEDS ORDERED: PHENYLEPHRINE DRIP 40 MG/250 ML PREMIX IV PRN (08:25)
[2020-08-24] MEDS ORDERED: PHENYLEPHRINE DRIP 40 MG/250 ML PREMIX IV ONE (08:26)
[2020-08-24] MEDS ORDERED: LACTATED RINGERS 1,000 ML IV ONE (08:28)
[2020-08-24] MEDS ORDERED: PHENYLEPHRINE INJ 160 MG in SODIUM CHLORIDE 0.9% 234 ML IV PRN (08:30)
[2020-08-24] MEDS ORDERED: SODIUM CHLORIDE 0.9% 1,000 ML IV ONE (08:51)
[2020-08-24] MEDS ORDERED: VASOPRESSIN 100 UNITS in SODIUM CHLORIDE 0.9% 95 ML IV PRN (09:00)
[2020-08-24] MEDS: SODIUM CHLORIDE 0.45% 1,000 ML IV SCH (09:08)
[2020-08-24] MEDS: LACTATED RINGERS 1,000 ML IV SCH ×2 (11:20→17:54)
[2020-08-24] MEDS ORDERED: LACTATED RINGERS 500 ML IV ONE ×2 (13:11→15:35)
[2020-08-24] MEDS: NOREPINEPHRINE 16 MG in SODIUM CHLORIDE 0.9% 234 ML IV PRN ×2 (15:23→22:10)
[2020-08-24] MEDS: HEPARIN DRIP 25,000 UNITS/500 ML PREMIX IV SCH (17:53)
[2020-08-24] MEDS: DONEPEZIL 10 MG TABLET PO SCH (20:13)
[2020-08-25] MEDS: INSULIN LISPRO 100 UNIT/ML SUBCUT SCH ×3 (00:07→12:18)
[2020-08-25] MEDS: LACTATED RINGERS 1,000 ML IV SCH ×2 (01:11→03:04)
[2020-08-25 01:47] LABS: ABG Base Excess -14.2 MMOL/L (-2.5-2.5); ABG HCO3 13.3 MMOL/L (20-26); ABG Oxygen Saturation 99.1 % (95-100); ABG PCO2 41.7 MM HG (35-48); ABG TCO2 13.7 MMOL/L (23-27)
[2020-08-25 01:48] LABS: ABG PH 7.136 (7.35-7.45)
[2020-08-25] MEDS ORDERED: ATROPINE 1 MG/10 ML SYRINGE IV ONE (01:53)
[2020-08-25] MEDS ORDERED: LACTATED RINGERS 1,000 ML IV ONE ×3 (01:54→13:02)
[2020-08-25] MEDS ORDERED: CALCIUM CHLORIDE 1,000 MG/10 ML SYRINGE IV ONE (01:54)
[2020-08-25] MEDS ORDERED: AMIODARONE INJ 150 MG in DEXTROSE 5% 100 ML IV ONE (02:08)
[2020-08-25] MEDS ORDERED: AMIODARONE INJ 450 MG in DEXTROSE 5% 241 ML IV SCH (02:17)
[2020-08-25] MEDS ORDERED: SODIUM BICARBONATE 50 MEQ/50 ML VIAL IV ONE ×3 (02:23→08:05)
[2020-08-25 02:28] LABS: Basophils % 0.1 % (0.0-0.8); Hematocrit 19.3 VOL% (42.0-52.0); Immature Granulocytes % 1.4 %; Immature Granulocytes Absolute 0.25 #; Lymphocytes # 0.6 10*3/uL (1.4-4.0); Lymphocytes % 3.5 % (21.2-54.2); Mean Corpuscular HGB Conc 31.1 GM/DL (32-36); Mean Corpuscular Volume 104.3 FL (87-102); Mean Platelet Volume 12.9 FL (9.6-12.0); Monocytes % 5.3 % (1.7-12.7); NRBC # 0.13 10*3/uL; Neutrophils % 89.7 % (38.7-73.9); Platelet Count 95 T/CUMM (130-400); Red Cell Distribution Width 13.2 % (9.3-17.3); White Blood Count 17.5 T/CUMM (4-12)
[2020-08-25 02:33] LABS: Red Blood Count 1.85 MC/CUMM (3.8-5.5)
[2020-08-25] MEDS ORDERED: SODIUM CHLORIDE 0.9% 1,000 ML IV PRN (02:33)
[2020-08-25 02:36] LABS: Calcium 6.7 MG/DL (8.5-10.1); Osmolality,Calculated 346.7 MOS/KG (273-304); Potassium 5.8 MMOL/L (3.5-5.1); Total Protein 3.6 G/DL (6.4-8.3)
[2020-08-25 03:51] LABS: ABG Base Excess -13.5 MMOL/L (-2.5-2.5); ABG HCO3 13.7 MMOL/L (20-26); ABG Oxygen Saturation 98.4 % (95-100); ABG PCO2 45.5 MM HG (35-48); ABG TCO2 14.7 MMOL/L (23-27)
[2020-08-25 03:53] LABS: ABG PH 7.125 (7.35-7.45)
[2020-08-25] MEDS: methylPREDNISolone SOD SUC 40 MG/1 ML VIAL IV SCH ×2 (04:08→10:32)
[2020-08-25 04:42] LABS: Lymphocytes 7 % (20-55); Nucleated Red Blood Cells 1 (0-5); Platelet Estimate Decreased; Segmented Neutrophils 87 % (50-85); Total Cells Counted 100
[2020-08-25] MEDS ORDERED: ALBUMIN 5% 25 GM in PREMIX 1 EACH IV ONE (04:58)
[2020-08-25] MEDS: NOREPINEPHRINE 16 MG in SODIUM CHLORIDE 0.9% 234 ML IV PRN (05:36)
[2020-08-25 06:06] LABS: Hematocrit 27.6 VOL% (42.0-52.0); Hemoglobin 8.6 GM/DL (14.0-18.0)
[2020-08-25 06:24] VITALS: BP 109/64
[2020-08-25] MEDS ORDERED: SODIUM BICARB INJ 100 MEQ in SODIUM CHLORIDE 0.45% 1,000 ML IV SCH (08:30)
[2020-08-25] MEDS: AMIODARONE INJ 450 MG in DEXTROSE 5% 241 ML IV SCH ×2 (08:48→13:53)
[2020-08-25] MEDS: PANTOPRAZOLE 40 MG VIAL IV SCH (08:50)
[2020-08-25] MEDS: MEMANTINE 10 MG TABLET PO SCH (08:50)
[2020-08-25] MEDS: ASCORBIC ACID 500 MG TABLET PO SCH (08:50)
[2020-08-25] MEDS: ZINC GLUCONATE 50 MG TABLET PO SCH (08:50)
[2020-08-25] MEDS: CHOLECALCIFEROL 1,000 UNIT TABLET PO SCH (08:50)
[2020-08-25] MEDS ORDERED: ALBUMIN 25% 25 GM in PREMIX 1 EACH IV SCH (09:00)
[2020-08-25] MEDS: INSULIN GLARGINE 100 UNIT/ML SUBCUT SCH (09:57)
[2020-08-25] MEDS ORDERED: NOREPINEPHRINE 16 MG in DEXTROSE 5% 234 ML IV PRN (10:27)
[2020-08-25] MEDS ORDERED: PHENYLEPHRINE INJ 160 MG in DEXTROSE 5% 234 ML IV PRN (10:30)
[2020-08-25] MEDS: CEFEPIME 1,000 MG in SODIUM CHLORIDE 0.9% 100 ML IV SCH (10:41)
== END 2020-08-25 14:45 | disposition expired | DRG 207 ==
LOC: N.ED 10:23 → SUATTDRO 13:15 → N.EDINP 13:15 → N.2E 15:40 → N.CC 08-19 10:14
PROVIDERS: ADMIT Internal Medicine; ATTEND Internal Medicine